=== PATIENT | female | born 1995 | race African-American/Black ===

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

== ENCOUNTER 2017-10-01 16:19 | Emergency (ER) | payer SELFPAY ==
[2016-11-04 13:49] VITALS: BMI 38.5
[~2017-10-01 16:19] MED LIST changes: +IBUPROFEN600 MG PO; +PERCOCET 5-3251 TAB PO
[2017-10-01 17:11] LABS: BASOPHILS 0.2 % (0-2); EOSINOPHILS 2.5 % (0-7); HEMATOCRIT 39.2 % (36.0-48.0); HEMOGLOBIN 12.7 g/dL (12-16); IMMATURE GRANULOCYTES 0.4 % (0-5); LYMPHOCYTES 37.3 % (15-50); MCH 28.4 pg (26.0-34.0); MCHC 32.4 g/dL (31.0-37.0); MCV 87.7 fL (80.0-100.0); MEAN PLATELET VOLUME 9.3 fL (7.4-10.4); MONOCYTES 8.7 % (2-11); NEUTROPHILS 50.9 % (40-80); RBC 4.47 10x6/uL (4.00-5.40); RDW 13.2 % (11.5-14.5); WBC 8.2 10x3/uL (4.8-10.8)
[2017-10-01 17:15] LABS: PLATELET COUNT 350 10x3/uL (130-400)
[2017-10-01 17:16] LABS: APPEARANCE CLEAR (CLEAR); BILIRUBIN NEGATIVE (NEGATIVE); COLOR YELLOW (YELLOW); GLUCOSE NEGATIVE (NEGATIVE); KETONE NEGATIVE (NEGATIVE); NITRITE NEGATIVE (NEGATIVE); PROTEIN NEGATIVE (NEGATIVE); SPECIFIC GRAVITY 1.015 (1.005-1.020); UROBILINOGEN NORMAL (NORMAL)
[2017-10-01 17:19] LABS: BACTERIA MODERATE /hpf (NONE SEEN); EPITHELIAL CELLS 0-5 /hpf (0-5); RED CELLS - URINE 0-5 /hpf (0-5)
[2017-10-01 17:20] LABS: HCG URINE NEGATIVE (NEGATIVE)
== END 2017-10-01 18:25 | disposition home or self-care (01) ==
LOC: D.ER 16:19
PROVIDERS: Emergency Medicine
DX: N39.0 Urinary tract infection, site not specified (principal)

== ENCOUNTER 2018-07-17 14:24 | Emergency (ER) | payer MEDICAID ==
[~2018-07-17] VITALS: Ht 152.4 cm
[2018-07-17 14:38] VITALS: Ht 152.4 cm
[2018-07-17 15:10] LABS: BASOPHILS 0.2 % (0-2); EOSINOPHILS 2.1 % (0-7); HEMATOCRIT 30.6 % (36.0-48.0); HEMOGLOBIN 10.1 g/dL (12-16); LYMPHOCYTES 21.1 % (15-50); MCH 29.3 pg (26.0-34.0); MCV 88.7 fL (80.0-100.0); MEAN PLATELET VOLUME 9.5 fL (7.4-10.4); MONOCYTES 9.4 % (2-11); NEUTROPHILS 66.2 % (40-80); RBC 3.45 10x6/uL (4.00-5.40); RDW 14.1 % (11.5-14.5); WBC 10.7 10x3/uL (4.8-10.8)
[2018-07-17 15:24] LABS: ALBUMIN 2.8 g/dL (3.4-5.0); ALKALINE PHOSPHATASE 66 U/L (46-116); ALT (SGPT) 10 U/L (10-68); BILIRUBIN - TOTAL 0.21 mg/dL (0.2-1.3); CALC OSMOLALITY 268 mosm/kg (275-300); CALCIUM 8.7 mg/dL (8.5-10.1); CARBON DIOXIDE 20.6 mmol/L (21.0-32.0); CHLORIDE - SERUM 104 mmol/L (98-107); CREATININE - SERUM 0.7 mg/dL (0.6-1.3); GLUCOSE 103 mg/dL (74-106); POTASSIUM - SERUM 3.3 mmol/L (3.5-5.1); PROTEIN - SERUM 6.5 g/dL (6.4-8.2); SODIUM 136 mmol/L (136-145); UREA NITROGEN 4 mg/dL (7-18); eGFR NON AFRICAN AMERICAN > 90 mL/min (90-120)
[2018-07-17 15:26] LABS: PLATELET COUNT 271 10x3/uL (130-400)
[2018-07-17 15:47] LABS: HCG - QUANTITATIVE (MATERNAL) 19276 mIU/mL
[2018-07-17 15:58] LABS: APPEARANCE HAZY (CLEAR); BILIRUBIN NEGATIVE (NEGATIVE); COLOR YELLOW (YELLOW); GLUCOSE NEGATIVE (NEGATIVE); KETONE NEGATIVE (NEGATIVE); NITRITE NEGATIVE (NEGATIVE); PROTEIN TRACE mg/dL (NEGATIVE); SPECIFIC GRAVITY 1.015 (1.005-1.020); UROBILINOGEN NORMAL (NORMAL)
[2018-07-17 15:59] LABS: WHITE CELLS - URINE >50 /hpf (0-5)
[2018-07-17 16:00] LABS: BACTERIA MANY /hpf (NONE SEEN); MUCUS <1+ /lpf (NONE SEEN)
[2018-07-17] MEDS ORDERED: MACROBID100 MG PO (16:19)
[2018-07-17 16:40] VITALS: BP 148/77
== END 2018-07-17 16:40 | disposition home or self-care (01) ==
LOC: D.ER 14:24
PROVIDERS: Family Medicine
DX: O23.42 Unspecified infection of urinary tract in pregnancy, second trimester (principal); Z3A.23 23 weeks gestation of pregnancy; R10.30 Lower abdominal pain, unspecified

== ENCOUNTER → 2018-09-20 15:03 | Outpatient (CLI) | payer MEDICAID ==
[~2018-09-20 15:03] MED LIST changes: +FLAGYL500 MG PO; +KEFLEX500 MG PO; +MACROBID100 MG PO
[2018-09-20 15:43] LABS: APPEARANCE HAZY (CLEAR); BILIRUBIN 1+ (NEGATIVE); COLOR ORANGE (YELLOW); GLUCOSE NEGATIVE (NEGATIVE); KETONE LARGE mg/dL (NEGATIVE); NITRITE NEGATIVE (NEGATIVE); PROTEIN NEGATIVE (NEGATIVE)
[2018-09-20 15:44] LABS: RED CELLS - URINE 0-5 /hpf (0-5)
[2018-09-20 15:45] LABS: BACTERIA MODERATE /hpf (NONE SEEN)
[2018-09-20 16:16] LABS: UDS - AMPHET NEGATIVE QUAL (NEGATIVE); UDS - BARB NEGATIVE QUAL (NEGATIVE); UDS - BENZO NEGATIVE QUAL (NEGATIVE); UDS - COCAINE NEGATIVE QUAL (NEGATIVE); UDS - OPIATE NEGATIVE QUAL (NEGATIVE); UDS - PCP NEGATIVE QUAL (NEGATIVE); UDS - THC NEGATIVE QUAL (NEGATIVE)
== END | disposition home or self-care (01) ==
LOC: D.LDO 15:03
PROVIDERS: Obstetrics & Gynecology
DX: O26.893 Other specified pregnancy related conditions, third trimester (principal); Z3A.32 32 weeks gestation of pregnancy

== ENCOUNTER → 2018-10-12 14:48 | Outpatient (CLI) | payer MEDICAID ==
[2018-10-12 15:49] LABS: APPEARANCE HAZY (CLEAR); BILIRUBIN NEGATIVE (NEGATIVE); COLOR AMBER (YELLOW); GLUCOSE NEGATIVE (NEGATIVE); KETONE NEGATIVE (NEGATIVE); NITRITE NEGATIVE (NEGATIVE); PROTEIN 1+ mg/dL (NEGATIVE); UROBILINOGEN NORMAL (NORMAL)
[2018-10-12 15:51] LABS: EPITHELIAL CELLS 0-5 /hpf (0-5); RED CELLS - URINE 0-5 /hpf (0-5)
[2018-10-12 15:52] LABS: BACTERIA MODERATE /hpf (NONE SEEN)
== END | disposition home or self-care (01) ==
LOC: D.LDO 14:48
PROVIDERS: Obstetrics & Gynecology
DX: O26.893 Other specified pregnancy related conditions, third trimester (principal); Z3A.35 35 weeks gestation of pregnancy; R10.30 Lower abdominal pain, unspecified; N89.8 Other specified noninflammatory disorders of vagina; R51 Headache

== ENCOUNTER → 2018-10-13 16:24 | Outpatient (CLI) | payer MEDICAID ==
[2018-10-13 17:21] LABS: APPEARANCE CLOUDY (CLEAR); BILIRUBIN NEGATIVE (NEGATIVE); COLOR DK YELLOW (YELLOW); GLUCOSE NEGATIVE (NEGATIVE); KETONE MODERATE mg/dL (NEGATIVE); NITRITE NEGATIVE (NEGATIVE); PROTEIN 2+ mg/dL (NEGATIVE); UROBILINOGEN NORMAL (NORMAL)
[2018-10-13 17:24] LABS: UDS - AMPHET NEGATIVE QUAL (NEGATIVE); UDS - BARB NEGATIVE QUAL (NEGATIVE); UDS - BENZO NEGATIVE QUAL (NEGATIVE); UDS - COCAINE NEGATIVE QUAL (NEGATIVE); UDS - OPIATE NEGATIVE QUAL (NEGATIVE); UDS - PCP NEGATIVE QUAL (NEGATIVE); UDS - THC NEGATIVE QUAL (NEGATIVE)
[2018-10-13 17:25] LABS: BACTERIA MODERATE /hpf (NONE SEEN); RED CELLS - URINE 0-5 /hpf (0-5); YEAST >1+ WITH HYPHAE /hpf (NONE SEEN)
== END | disposition home or self-care (01) ==
LOC: D.LDO 16:24
PROVIDERS: Obstetrics & Gynecology
DX: O26.893 Other specified pregnancy related conditions, third trimester (principal); Z3A.35 35 weeks gestation of pregnancy; R10.84 Generalized abdominal pain

== ENCOUNTER 2018-11-08 05:01 | Inpatient (IN) | payer MEDICAID ==
[~2018-11-08] VITALS: Ht 152.4 cm; Wt 92.5 kg
[2018-11-08] MEDS ORDERED: VALTREX500 MG PO (05:12)
[2018-11-08] MEDS ORDERED: ZOVIRAX800 MG PO (05:14)
[2018-11-08 05:15] VITALS: BP 114/67; Ht 152.4 cm; Wt 92.5 kg
[2018-11-08 05:48] LABS: HEMATOCRIT 30.7 % (36.0-48.0); HEMOGLOBIN 9.8 g/dL (12-16); MCH 27.5 pg (26.0-34.0); MCHC 31.9 g/dL (31.0-37.0); MCV 86.2 fL (80.0-100.0); MEAN PLATELET VOLUME 10.3 fL (7.4-10.4); RBC 3.56 10x6/uL (4.00-5.40); RDW 14.6 % (11.5-14.5)
[2018-11-08 06:04] LABS: APPEARANCE CLOUDY (CLEAR); BILIRUBIN NEGATIVE (NEGATIVE); COLOR YELLOW (YELLOW); GLUCOSE NEGATIVE (NEGATIVE); KETONE NEGATIVE (NEGATIVE); NITRITE NEGATIVE (NEGATIVE); PROTEIN 1+ mg/dL (NEGATIVE); UROBILINOGEN NORMAL (NORMAL)
[2018-11-08 06:06] LABS: BACTERIA MANY /hpf (NONE SEEN); CALCIUM OXALATE CRYSTALS 0-5 /hpf (NONE SEEN); EPITHELIAL CELLS 0-5 /hpf (0-5); RED CELLS - URINE 0-5 /hpf (0-5)
[2018-11-08 11:40] VITALS: BP 126/60
--- NOTE | 2018-11-08 11:40 | NUR ---
Pt received back to room by bed from recovery with bedside report per OR nurse. PT is awake and alert, pain rating is 2/10, fundus firm at u/u with moderate lochia noted to brian pad, pad and towel changed. El cath to bedside drain with 200ml clear urine in collection canister. NS with 20units of pitocin infusing per orders and bilat scd in place and pump turned on.
--- NOTE | 2018-11-08 12:00 | NUR ---
fundus firm at u/1 with no clots and moderate bleeding. rates pain at 2/10 and states that she is still numb in both legs. large lemon [place] soda per request. Nursery nurse at bedside providing assistance with inital breast feeding.
--- NOTE | 2018-11-08 12:20 | NUR ---
fundus firm at u/1 with light bleeding noted. bonding with , family at bedside. Call light in reach.
--- NOTE | 2018-11-08 13:00 | NUR ---
Pt calls for nurse. Complains that cramping has not stopped, Abd soft to touch, fundus firm at u/1 with light to moderate bleeding noted, no clots with massage. towels changed and pt tilted to left side. 300ml clear urine to collections canister. Family at bedside and pt laughing/talking on her phone. Call light in reach.
--- NOTE | 2018-11-08 13:20 | NUR ---
Dr Bogdan mcknight.
--- NOTE | 2018-11-08 13:30 | NUR ---
Md given report that Tordal was given about an hour ago and pt continue to rate pain at 7/10. Md request pt receive po Percocet 10/325mg as ordered.
--- NOTE | 2018-11-08 13:52 | NUR ---
PO pain med given with large cranberry juice. Pt states understanding that pain would be reassessed and Dr Mcfadden is aware her pain level. Call light in reach, side rails up x 2. family present.
--- NOTE | 2018-11-08 14:00 | NUR ---
Called to room, pt complains of being cold and ask for temp to be adjusted. Thermostat set to 75 and pt provided with warm blanket.
--- NOTE | 2018-11-08 14:50 | NUR ---
Pt rates pain at 7/10 at this time but says she is still having a lot of cramping. Explained that some of that was due to the pitocin she was receiving IV to aid with bleeding, states her understanding. Assistance given to position on to right side, head of bed lowered and lights turned out. Side rails up x 2 with phone and call light in reach.
--- NOTE | 2018-11-08 15:17 | NUR ---
Call light answered, pt ask for temp to be cooler now because she is to hot. adjusted to 70 per termostat. Mult visitors at bedside.
--- NOTE | 2018-11-08 18:00 | NUR ---
PT RATES PAIN AT 3/10 TORDAL GIVEN SEEN ON EMAR. OFFERED TO CHANGE TOWELS AND PADS OUT BUT PT STATES THAT IF HER CATH IS TO BE REMOVED AT 7PM CAN MY BED BE CHANGED AFTER I GET UP. BONDING WITH INFANT WITH FAMILY AT BEDSIDE, SIDE RAILS UP X 2 WITH CALL LIGHT IN REACH.
--- NOTE | 2018-11-08 18:40 | NUR ---
BEDSIDE REPORT COMPLETED.
--- NOTE | 2018-11-08 19:00 | NUR ---
REPORT RECEIVED FROM SAPPHIRE ESPANA. NO REPORTS OF DISTRESS RECEIVED.
--- NOTE | 2018-11-08 19:35 | NUR ---
PATIENT SITTING UP IN BED. FAMILY AT BEDSIDE. STATES PAIN 4 OUT OF 10. ASSESSMENT AND VITAL SIGNS DONE. RESPIRATIONS AT EASE. LUNG SOUNDS CLEAR IN ALL RON. HEART REGULAR RATE AND RHYTHM. ABDOMEN SOFT AND TENDER TO TOUCH. BOWEL SOUNDS PRESENT IN ALL QUADRANTS. FUNDUS FIRM AND AT UMBILICUS. MERINO CATHETER INTACT AND DRAINING CLEAR YELLOW URINE TO GRAVITY. MERINO CATHETER DC'D AT THIS TIME. 2700 CC'S OF CLEAR YELLOW URINE EMPTIED FROM CATHETER BAG. SEBASTIAN PAD AND BLUE PAD SATURATED WITH LOCHIA. ABDOMINAL DRESSING NOTED OVER INCISION. DRESSING INTACT, BUT SATURATED WITH LOCHIA. SCANT AMOUNT OF LOCHIA NOTED WITH FUNDAL MASSAGE. + 1 EDEMA NOTED TO BLE. SCD'S ON BLE AND WORKING. SALINE LOCK IN L HAND. NO REDNESS OR EDEMA NOTED. PATIENT REQUESTS TO GET UP TO SHOWER TO CLEAN UP. PATIENT SITTING ON SIDE OF BED. DENIES ANY DIZZINESS. PATIENT ASSISTED TO BATHROOM WITHOUT DIFFICULTY, DENIES ANY DIZZINESS. ASSITED PATIENT WITH SHOWER. NEW GOWN APPLIED. SEBASTIAN PAD CHANGED. LINENS CHANGED. PATIENT ASSISTED BACK TO BED. BED IN LOWEST POSITION, SIDE RAILS UP X 2, C/L AND WATER WITHIN REACH. DENIES ANY FURTHER NEEDS AT THIS TIME.
[2018-11-08 19:40] VITALS: BP 116/64
--- NOTE | 2018-11-08 20:30 | NUR ---
DR. COOK PAGED AT THIS TIME AND RETURNED PAGE IMMEDIATELY. NOTIFIED DR. COOK OF ABDOMINAL DRESSING BEING SATURATED WITH LOCHIA WELL SEBASTIAN PAD AND BLUE PAD. NOTIFIED OF PATIENT REQUESTING ABDOMINAL DRESSING TO BED REMOVED. FUNDUS FIRM AND AT UMBILICUS WITH FUNDAL MASSAGE. SCANT AMOUNT OF LOCHIA NOTED WITH MASSAGE. PATIENT DENIES ANY DIZZINES. ORDERS RECEIVED TO REMOVE ABDOMINAL DRESSING AND TO ADMINISTER CYTOTEC 1000 MCG PO AT THIS TIME AND TO CALL IF LOCHIA PROGRESSES. ORDERS REPEATED AND VERIFIED.
--- NOTE | 2018-11-08 20:42 | NUR ---
PATIENT SITTING UP IN BED. STATES PAIN 7 OUT OF 10. PERCOCET 10/325 ADMINISTERED PO AT THIS TIME. CYTOTEC 1000 MCG ADMINISTERED PO, VALTREX 1000MG ADMINISTERED PO, ROCEPHIN 1 GM ADMINISTERED BY IVPB AFTER FLUSHING SALINE LOCK WITH NS. FUNDUS FIRM AND AT UMBILICUS WITH FUNDAL MASSAGE. SMALL AMOUNT OF LOCHIA NOTED ON SEBASTIAN PAD. PATIENT DENIES ANY FURTHER NEEDS. BED IN LOWEST POSITION, SIDE RAILS UP X 2, C/L AND WATER WITHIN REACH.
--- NOTE | 2018-11-08 20:50 | NUR ---
DRESSING REMOVED PER DR. COOK ORDER. INCISION INTACT AND SECURED WITH STERI STRIPS. NO REDNESS OR EDEMA NOTED TO INCISION. PATIENT TOLERATED WELL.
--- NOTE | 2018-11-08 21:20 | NUR ---
PATIENT SITTING UP IN BED. STATES PAIN 3 OUT OF 10. FUNDUS FIRM AND AT UMBILICUS WITH FUNDAL MASSAGE. SCANT AMOUNT OF LOCHIA NOTED ON SEBASTIAN PAD. DENIES ANY FURTHER NEEDS. BED IN LOWEST POSITION, SIDE RAILS UP X 2, C/L AND WATER WITHIN REACH.
--- NOTE | 2018-11-08 22:00 | NUR ---
PATIENT SITTING UP IN BED. PATIENT REQUESTS TO GET UP TO BR. PATIENT ASSISTED UP TO BATHROOM. DENIES ANY DIZZINESS. VOIDED 600 CC'S OF BLOOD TINGE URINE. PATIENT ASSISTED BACK TO BED WITHOUT DIFFICULTY. FUNDUS FIRM AND AT UMBILICUS WITH FUNDAL MASSAGE. SCANT AMOUNT OF LOCHIA NOTED ON SEBASTIAN PAD. PATIENT DENIES ANY NEEDS OR CONCERNS. BED IN LOWEST POSITION, SIDE RAILS UP X 2 ,C/L AND WATER WITHIN REACH.
--- NOTE | 2018-11-08 22:15 | NUR ---
REPORT RECEIVED FROM SAPPHIRE ESPANA. NO REPORTS OF DISTRESS RECEIVED.
--- NOTE | 2018-11-08 23:10 | NUR ---
PATIENT SITTING UP IN BED WATCHING TV. DENIES PAIN OR ANY NEEDS AT THIS TIME. FUNDUS FIRM AND AT UMBILICUS. SCANT AMOUNT OF LOCHIA NOTED ON SEBASTIAN PAD. BED IN LOWEST POSITION, SIDE RAILS UP X 2, C/L AND WATER WITHIN REACH.
--- NOTE | 2018-11-09 00:07 | NUR ---
PATIENT SITTING UP IN BED WATCHING TV. STATES PAIN 3 OUT OF 10. SCHEDULED TORADOL 30 MG ADMINISTERED SLOW IV PUSH AFTER SALINE LOCKED FLUSHED. PATIENT TOLERATED WELL. DENIES ANY FURTHER NEEDS. BED IN LOWEST POSITION, SIDE RAILS UP X 2, C/L AND WATER WITHIN REACH.
--- NOTE | 2018-11-09 01:10 | NUR ---
INFANT TO MOTHERS ROOM VIA OPEN CRIB, ID VERIFIED AND PLACED IN MOTHERS ARMS. MOTHER REMINDED THAT INFANTS FEEDING TIME WILL BE AT 0230.
--- NOTE | 2018-11-09 01:53 | NUR ---
PATIENT SITTING UP IN BED FEEDING INFANT. DENIES ANY NEEDS OR CONCERNS. NO SIGNS OF DISTRESS NOTED. BED IN LOWEST POSITION, SIDE RAILS UP X 2, C/L AND WATER WITHIN REACH.
--- NOTE | 2018-11-09 03:43 | NUR ---
PATIENT LYING IN BED WITH EYES CLOSED. DENIES ANY NEEDS OR CONCERNS. BED IN LOWEST POSITION, SIDE RAILS UP X 2, C/L AND WATER WITHIN REACH.
[2018-11-09 04:34] VITALS: BP 125/77
--- NOTE | 2018-11-09 04:34 | NUR ---
PATIENT LYING IN BED WITH EYES CLOSED. EASILY AROUSED. STATES PAIN 2 OUT OF 10. DENIES NEED FOR PAIN MEDICATION. AMBULATES TO BR WITH STEADY GAIT. VOIDS 600 CC'S OF BLOOD TINGE URINE. PATIENT AMBULATES BACK TO BED WITH STEADY GAIT. DENIES ANY FURTHER NEEDS AT THIS TIME. BED IN LOWEST POSITION, SIDE RAILS UP X 2, C/L AND WATER WITHIN REACH.
--- NOTE | 2018-11-09 06:02 | NUR ---
PATIENT LYING QUIETLY IN BED WITH EYES CLOSED. EASILY AROUSED. STATES PAIN 3 OUT OF 10. DENIES NEED FOR PRN MEDICATION. SCHEDULED TORADOL 30 MG ADMINISTERED SLOW IVP AT THIS TIME. PATIENT DENIES FURTHER NEEDS. BED IN LOWEST POSITION, SIDE RAILS UP X 2, C/L AND WATER WITHIN REACH.
--- NOTE | 2018-11-09 07:30 | NUR ---
AM assessment completed as charted on flowsheet, pt rates pain at 3/10 and denies need of any medication, fundus firm at u/u with light bleeding noted and pt denies any clots with voids. Sakshi pad along with mesh panties placed in bathroom per pt request. in crib at bedside. side rails up x 2 with phone and call light in reach.
[2018-11-09 08:23] LABS: RAPID PLASMA REAGIN Non Reactive (Non Reactive)
[2018-11-09 08:27] LABS: HEMOGLOBIN 8.1 g/dL (12-16); LYMPHOCYTES 17.8 % (15-50); MCH 29.3 pg (26.0-34.0); MCV 86.2 fL (80.0-100.0); MEAN PLATELET VOLUME 10.2 fL (7.4-10.4); PLATELET COUNT 182 10x3/uL (130-400); RDW 14.1 % (11.5-14.5)
[2018-11-09 08:31] LABS: WBC 11.1 10x3/uL (4.8-10.8)
[2018-11-09 08:32] LABS: HEMATOCRIT 23.8 % (36.0-48.0); RBC 2.76 10x6/uL (4.00-5.40)
--- NOTE | 2018-11-09 10:45 | NUR ---
Pt provided with towels for shower, up by herself and denies need of assistance. Bed linens changed and trash taken out while pt showers.
--- NOTE | 2018-11-09 11:29 | NUR ---
Pt out of shower and dressed, denies needs at this time. Visiting with her sister who brought in lunch.
--- NOTE | 2018-11-09 14:20 | NUR ---
LARGE CUP OF ICE WITH L[place]ON [place] SODA PER REQUEST. PT AMB IN HALLS WITH HER SISTER.
[2018-11-09 16:00] VITALS: BP 128/70
--- NOTE | 2018-11-09 16:01 | NUR ---
PT DENIES NEEDS VISITING WITH FAMILY AT BEDSIDE. IN ROOM AT THIS TIME ALSO. RATES HER PAIN AT 3/10.
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
--- NOTE | 2018-11-09 17:40 | NUR ---
ATTEMPT TO BEGIN IRON THEREPY BY IV, SALINE LOCKED FLUSHED EASILY BUT WHEN PUMP STARTED PT JERKS ARM BACK STATING IT WAS BURNING, NOTED SWELLING AT CATH AREA. PUMP STOPPED AND CATH REMOVED INTACT.
--- NOTE | 2018-11-09 18:07 | NUR ---
REPORT OF BLOWN IV GIVEN TO DR COOK BY PHONE, ORDERS RECEIVED TO RESTART FOR PT TO RECIEVE IRON DUE TO CONTINUE LOW H&H THRU . TO ROOM TO GO OVER PLAN OF CARE WITH PT BUT SHE IS TALKING WITH NURSERY NURSE AT THIS TIME.
--- NOTE | 2018-11-09 18:45 | NUR ---
REPORT TO Mike HELM RN THAT PT NEEDED TO HAVE IV RESTARTED, DR COOK AT BEDSIDE AT THIS TIME TALKING WITH PT.
[2018-11-09 19:20] VITALS: BP 109/63
--- NOTE | 2018-11-09 19:20 | NUR ---
REC'D PT SITTING UP IN BED. RESP EVEN AND UNLABORED. ABDOMEN SOFT NONDISTENDED. BOWEL SOUNDS PRESENT X4. FUNDUS FIRM U/2. LOCHIA SMALL. PT REPORTS VOIDING WITHOUT DIFFICULTY. PT HAS IRON TO BE STARTED IV, PT REFUSED IV TO BE RESTARTED. DR. COOK NOTIFIED. IN ROOM AT BEDSIDE. NO NEEDS AT THIS TIME. ANDRA ESPANA
--- NOTE | 2018-11-09 19:24 | NUR ---
MOTRIN 800MG ADMINISTERED ORDERED. PT DENIES PAIN AT THIS TIME. ANDRA ESPANA
[2018-11-09 23:03] VITALS: BP 108/58
--- NOTE | 2018-11-09 23:03 | NUR ---
VS TAKEN AND WNL. DENIES NEEDS, BONDING WITH . RATES PAIN 11/09. ANDRA ESPANA
--- NOTE | 2018-11-10 01:28 | NUR ---
ROOM CHECK, PT AWAKE AND ALERT. RATES PAIN 10. INFORMED MOTRIN SCHEDULED AT 314. PT DENIES NEEDS AT THIS TIME. ANDRA ESPANA
[2018-11-10 03:19] VITALS: BP 120/73
--- NOTE | 2018-11-10 03:19 | NUR ---
VS TAKEN AND WNL. MOTRIN ADMINISTERED ORDERED. FRESH ICE WATER AND SNACKS PROVIDED PER PT REQUEST. ANDRA ESPANA
--- NOTE | 2018-11-10 05:25 | NUR ---
ROOM CHECK, PT RESTING WITH EYES CLOSED. RESP EVEN AND UNLABORED. ANDRA ESPANA
--- NOTE | 2018-11-10 07:18 | NUR ---
baby in mothers arms. states doing fine. denies needs.
[2018-11-10 07:20] VITALS: BP 122/63
--- NOTE | 2018-11-10 07:28 | NUR ---
ASSESSMENT COMPLETE. BABY TO NURSERY FOR VS. REG BREAKFAST SERVED.
--- NOTE | 2018-11-10 07:51 | NUR ---
DR COOK IN UNIT TO SEE PT. DR COOK ORDERS PT TO RECEIVED PAIN MEDICATION AT THIS TIME.
[2018-11-10] MEDS ORDERED: PERCOCET 5-3251 TAB PO (07:55)
[2018-11-10] MEDS ORDERED: FERROUS SULFAT325 MG PO (07:55)
[2018-11-10] MEDS ORDERED: IBUPROFEN800 MG PO (07:55)
--- NOTE | 2018-11-10 09:02 | NUR ---
DISCHARGE INST PER THIS NURSE- Micaela GUILLEN RN
--- NOTE | 2018-11-10 09:27 | NUR ---
DEPO SHOT GIVEN PER ORDER. PT IS WANTING TO LEAVE BY 1200 TO GET TO [facility] APPOINTMENT. DISCHARGE INST VERBAL AND WRITTEN GIVEN. APPOINTMENT CARD GIVEN. PRESCRIPTIONS X 3 FOR PERCOCET AND IBUPROFEN GIVEN. PT MED REC GIVEN ALONG WITH DRUG DATA INFO ON ALL 5 MEDICATIONS ON MED REC. DISCHARGE INST ON POST OP CS GIVEN. PFW DISCHARGE INST GIVEN ALONG WITH POST OP SURGERY INST. PT HEALTH SUMMARY GIVEN. PT DENIES QUESTIONS.
--- NOTE | 2018-11-10 09:50 | NUR ---
UP INTO SHOWER.
--- NOTE | 2018-11-10 11:59 | NUR ---
DISCHARGED TO HOME WITH INFANT. TO AUTO VIA W/C.
== END 2018-11-10 12:00 | disposition home or self-care (01) | DRG 787 ==
LOC: D.LD 05:01 → D.SDCHOLD 09:00 → D.LD 11-10 12:00
PROVIDERS: ADMIT Obstetrics & Gynecology
PROC: 10D00Z1 Extraction of Products of Conception, Low, Open Approach (ICD-10-PCS; principal; 2018-11-08 09:00)
DX: O75.3 Other infection during labor (principal); O98.32 Other infections with a predominantly sexual mode of transmission complicating childbirth; O99.02 Anemia complicating childbirth; D64.9 Anemia, unspecified; Z3A.39 39 weeks gestation of pregnancy; Z37.0 Single live birth

== ENCOUNTER 2019-03-19 16:47 | Emergency (ER) | payer MEDICAID ==
[~2019-03-19] VITALS: Ht 152.4 cm; Wt 86.4 kg
[~2019-03-19 16:47] MED LIST changes: +FERROUS SULFAT325 MG PO; +IBUPROFEN800 MG PO; +VALTREX500 MG PO; +ZOVIRAX800 MG PO
[2019-03-19 16:57] VITALS: Ht 152.4 cm; Wt 86.4 kg
[2019-03-19] MEDS ORDERED: FLUTICASONE PRO16 GM NASAL (19:27)
[2019-03-19] MEDS ORDERED: ZPAK PO (19:27)
[2019-03-19 19:33] LABS: APPEARANCE HAZY (CLEAR); BILIRUBIN NEGATIVE (NEGATIVE); COLOR YELLOW (YELLOW); GLUCOSE NEGATIVE (NEGATIVE); KETONE NEGATIVE (NEGATIVE); NITRITE NEGATIVE (NEGATIVE); PROTEIN NEGATIVE (NEGATIVE); UROBILINOGEN NORMAL (NORMAL)
[2019-03-19 19:35] LABS: BACTERIA MODERATE /hpf (NONE SEEN); MUCUS >1+ /lpf (NONE SEEN); RED CELLS - URINE 0-5 /hpf (0-5)
[2019-03-19 19:40] LABS: HCG URINE NEGATIVE (NEGATIVE)
[2019-03-19] MEDS ORDERED: FLAGYL500 MG PO (19:53)
[2019-03-19 20:01] VITALS: BP 124/85
== END 2019-03-19 20:01 | disposition home or self-care (01) ==
LOC: D.ER 16:47
PROVIDERS: Family Medicine
DX: J01.90 Acute sinusitis, unspecified (principal); N76.0 Acute vaginitis; N39.0 Urinary tract infection, site not specified